=== PATIENT | male | born 1960 | race Caucasian/White ===

== ENCOUNTER 2017-05-18 10:44 | Outpatient (CLI) | payer BC ==
[2017-05-18 16:27] LABS: ALT (SGPT) 27 U/L (8-55); AST (SGOT) 16 U/L (5-34); Albumin 4.7 g/dL (3.5-5.0); Alkaline Phosphatase 72 U/L (40-150); Anion Gap 19 mmol/L (10-20); BUN (Urea Nitrogen) 13 mg/dL (8.4-25.7); Bilirubin, Total 0.7 mg/dL (0.2-1.2); Calc. Creatinine Clearance 0 mL/min (70-130); Calcium 9.9 mg/dL (7.8-10.44); Carbon Dioxide 25 mmol/L (22-29); Cardiac Risk 8.4 (Less than 4.5); Chloride 102 mmol/L (98-107); Cholesterol 293 mg/dl (< 200 Desired); Estimated GFR-MDRD 90; Globulin 2.9 g/dL (2.4-3.5); Glucose 95 mg/dL (70-105); HDL Cholesterol 35 mg/dL (>60 Neg Risk); LDL Cholesterol, Calculated 204 mg/dL; Potassium 4.6 mmol/L (3.5-5.1); Protein, Total 7.6 g/dL (6.0-8.3); Sodium 141 mmol/L (136-145); Triglycerides 270 mg/dL (Less than 150)
== END 2017-05-18 10:45 ==
LOC: LABLEX 10:44
PROVIDERS: ATTEND Family Medicine
DX: Z00.00 Encounter for general adult medical examination without abnormal findings (principal)
CPT/HCPCS: 80053; 80061; G0103

== ENCOUNTER 2019-06-11 11:17 | Outpatient (CLI) | payer BC ==
--- NOTE | 2019-06-11 18:37 | RAD ---
LEFT HIP TWO VIEWS: 06/11/19 No fracture was seen. There is no bony destruction. The joint space is minimally narrowed but smooth. There are no osteophytes of concern. The adjacent pubic ring appears intact. IMPRESSION: No acute finding. POS: HOME
--- NOTE | 2019-06-11 18:39 | RAD ---
LUMBAR SPINE THREE VIEWS: 06/11/19 No fracture, dislocation, or acute bony change was seen. No disc space narrowing or bony anomaly was present. A few small anterior osteophytes are present, mainly at the L1-L2 level. Overall, degenerati ve change is very minimal. There is very slight curvature of the spine, convexed left which could be positional. The SI joints are symmetrical. An incidental finding is a 1.5 cm calcification in the lef t flank that appears to be in the lower pole of the left kidney. IMPRESSION: 1. No acute bony findings. 2. Presumed 1.5 cm left renal calculus, lower pole. POS: HOME
== END 2019-06-11 11:18 | disposition home or self-care (01) ==
LOC: BURRAD 11:17
PROVIDERS: ATTEND Nurse Practitioner
DX: M25.552 Pain in left hip (principal)
CPT/HCPCS: 72100

== ENCOUNTER 2021-03-16 15:29 | Outpatient (CLI) | payer BC | END 2021-03-16 15:30 | disposition home or self-care (01) | LOC: BURRAD 15:29 | PROVIDERS: ATTEND Nurse Practitioner | DX: M79.671 Pain in right foot (principal) ==

== ENCOUNTER 2022-02-24 10:29 | Emergency (ER) | payer BC, OTHER ==
[2022-02-24] MEDS ORDERED: Lidocaine 1% w/Epinephrine 1:100K 20 ML VIAL ONE (10:59)
[2022-02-24] MEDS ORDERED: Boostrix 0.5 ML (Tdap) VIAL ONE (10:59)
[2022-02-24] MEDS ORDERED: Bacitracin 1 PK ONE (10:59)
== END 2022-02-24 11:34 | disposition home or self-care (01) ==
LOC: BURERS 10:29
DX: I10 Essential (primary) hypertension (principal)
CPT/HCPCS: 90715; 99281

== ENCOUNTER 2022-02-24 20:52 | Emergency (ER) | payer OTHER ==
[2022-02-24] MEDS ORDERED: Ondansetron PF 4 MG/2 ML Vial ONE (22:22)
[2022-02-24 22:59] LABS: #Basophils 0.1 thou/uL (0.0-0.2); #Lymphocytes 1.3 thou/uL (1.20-3.40); #Monocytes 0.6 thou/uL (0.11-0.59); #Neutrophils 11.9 thou/uL (1.40-6.50); %Eosinophils 0.3 % (0.0-10.0); %Lymphocytes 9.3 % (21.0-51.0); %Monocytes 4.4 % (0.0-10.0); Hemoglobin 19.3 g/dL (14.0-18.0); Mean Corpuscular HGB CONC 35.8 g/dL (32.0-36.0); Mean Corpuscular Hemoglobin 33.5 pg (27.0-31.0); Mean Corpuscular Volume 93.5 fL (78.0-98.0); Mean Platelet Volume 7.4 fL (7.4-10.4); Platelet Count 200 thou/uL (130-400); RBC Distribution Width 11.9 % (11.5-14.5); Red Blood Cell (RBC) Count 5.76 mill/uL (4.70-6.10)
[2022-02-24 23:13] LABS: ALT (SGPT) 21 U/L (8-55); AST (SGOT) 14 U/L (5-34); Albumin 4.5 g/dL (3.5-5.0); Alkaline Phosphatase 82 U/L (40-110); Anion Gap 18 mmol/L (10-20); BUN (Urea Nitrogen) 11 mg/dL (8.4-25.7); Bilirubin, Total 0.6 mg/dL (0.2-1.2); Calc. Creatinine Clearance 0 mL/min (70-130); Calcium 9.4 mg/dL (7.8-10.44); Carbon Dioxide 24 mmol/L (22-29); Chloride 103 mmol/L (98-107); Globulin 3.2 g/dL (2.4-3.5); Glucose 162 mg/dL (70-105); Lipase 17 U/L (8-78); Potassium 3.8 mmol/L (3.5-5.1); Protein, Total 7.7 g/dL (6.0-8.3); Sodium 141 mmol/L (136-145)
== END 2022-02-24 23:38 | disposition home or self-care (01) ==
LOC: BURERS 20:52
DX: R03.0 Elevated blood-pressure reading, without diagnosis of hypertension (principal)
CPT/HCPCS: 36415; 80053; 83690; 84484; 85025; 93005; 96374; J2405

== ENCOUNTER 2025-05-19 09:33 | Emergency (ER) | payer OTHER ==
[2025-05-19] MEDS ORDERED: diphenhydrAMINE 50 MG/ML VIAL ONE (10:00)
[2025-05-19] MEDS ORDERED: Famotidine/PF 20 mg/2ml Vial ONE (10:19)
[2025-05-19 10:20] LABS: ALT (SGPT) 9 U/L (Less than 45); AST (SGOT) 17 U/L (11-34); Albumin 4.5 g/dL (3.1-4.5); Alkaline Phosphatase 83 U/L (40-110); Anion Gap 26 mmol/L (10-20); BUN (Urea Nitrogen) 20 mg/dL (8.4-25.7); Bilirubin, Total 0.9 mg/dL (0.3-1.2); Calc. Creatinine Clearance 0 mL/min (70-130); Calcium 9.4 mg/dL (7.8-10.44); Carbon Dioxide 15 mmol/L (23-31); Chloride 104 mmol/L (98-107); Globulin 3.2 g/dL (2.4-3.5); Glucose 199 mg/dL (80-115); Potassium 3.5 mmol/L (3.5-5.1); Sodium 141 mmol/L (136-145)
[2025-05-19 10:30] LABS: #Basophils 0.1 thou/uL (0.0-0.2); #Eosinophils 0.1 thou/uL (0.0-0.7); #Lymphocytes 2.1 thou/uL (1.20-3.40); #Monocytes 0.6 thou/uL (0.11-0.59); #Neutrophils 5.8 thou/uL (1.40-6.50); %Basophils 0.7 % (0.0-1.0); %Eosinophils 1.4 % (0.0-10.0); %Lymphocytes 24.5 % (21.0-51.0); %Monocytes 6.8 % (0.0-10.0); %Neutrophils 66.6 % (42.0-75.0); Hematocrit 51.2 % (42.0-52.0); Hemoglobin 18.9 g/dL (14.0-18.0); Mean Corpuscular Hemoglobin 32.9 pg (27.0-31.0); Mean Corpuscular Volume 89.0 fl (78.0-98.0); Platelet Count 291 10x3/uL (130-400); Red Blood Cell (RBC) Count 5.75 mill/uL (4.70-6.10); White Blood Cell (WBC) Count 8.7 10x3/uL (4.8-10.8)
== END 2025-05-19 11:11 | disposition home or self-care (01) ==
LOC: BURERS 09:33
DX: T63.441A Toxic effect of venom of bees, accidental (unintentional), initial encounter (principal); I10 Essential (primary) hypertension; F17.210 Nicotine dependence, cigarettes, uncomplicated
CPT/HCPCS: 80053; 85025; 96374; 96375; J1200; J1308; J2919